=== PATIENT | male | born 1980 | race Caucasian/White ===

== ENCOUNTER → 2020-02-22 08:56 | Outpatient (CLI) | payer OTHER, SELFPAY ==
[2019-02-22 16:29] VITALS: BMI 23.7
[2020-02-22 12:02] LABS: Absolute Lymphocyte Count 1.41 X10^3/uL (0.83-4.51); Absolute Neutrophil Count 2.5 X10^3/uL (2.0-7.7); Basophil# 0.02 X10^3/uL; Basophil% 0.5 % (0-1); Eosinophil# 0.15 X10^3/uL; Eosinophils% 3.4 % (0-5); Hemoglobin 14.5 g/dL (13.0-16.5); Lymphocyte # 1.41 X10^3/ul (4.0); Lymphocyte % 32.1 % (19-41); Mean Corp Hgb Conc 32.2 g/dL (32-36); Mean Corpuscular Hgb 29.7 pg (27.0-32.0); Mean Platelet Vol. 11.1 fl (6.2-12.0); Monocyte# 0.34 X10^3/uL; Monocyte% 7.7 % (0-10); NRBC Flagged by Analyzer 0 % (0-5); Neutrophil # 2.46 X10^3/uL (2.7-7.7); Neutrophil % 56.1 % (47-70); Platelet Count 240 K/mm3 (150-450); RBC Distribution Width CV 12.3 % (11.6-14.6); RBC Distribution Width SD 41.5 fl (35.1-43.9); Red Blood Count 4.89 M/mm3 (4.6-6.2); White Blood Count 4.4 K/mm3 (4.4-11.0)
[2020-02-22 12:21] LABS: ALB/GLOB Ratio 1.4 RATIO (0.9-2.4); AST(SGOT) 14 U/L (15-37); Alanine Aminotransfer ALT/SGPT 30 U/L (16-61); Alkaline Phosphatase 53 U/L (45-117); Anion Gap 3 (5-15); BUN 15 mg/dL (7-18); BUN/Creat Ratio 15.3 RATIO (10-20); Calcium,Total 8.5 mg/dL (8.5-10.1); Chloride 105 mmol/L (98-107); Cholesterol 252 mg/dL (200); Creatinine, Serum 0.98 mg/dL (0.70-1.30); EST Glomerular Filtration Rate 91 mL/min (>60); Est Glom Filt Rate - Afr Amer 110 mL/min (>60); Globulin 2.9 g/dL (2.2-4.2); Glucose 88 mg/dL (74-106); High Density Lipoprotein 73 mg/dL; Protein, Total 6.9 g/dL (6.4-8.2); Sodium Level 138 mmol/L (136-145); Triglycerides 31 mg/dL; Very Low Density Lipoprotein 6 mg/dL (5-40)
== END ==
PROVIDERS: Family Provider Family Medicine; PCP Family Medicine; Visit Provider Family Medicine
DX: Z00.00 Encounter for general adult medical examination without abnormal findings (principal); Z51.81 Encounter for therapeutic drug level monitoring
CPT/HCPCS: 36415; 80053; 80061; 85025

== ENCOUNTER → 2022-12-14 | Outpatient (CLI) | payer BC, SELFPAY ==
[2022-12-14 13:02] LABS: ALB/GLOB Ratio 1.3 RATIO (0.9-2.4); AST(SGOT) 17 U/L (15-37); Alanine Aminotransfer ALT/SGPT 30 U/L (16-61); Albumin, Serum 3.7 g/dL (3.2-5.0); Alkaline Phosphatase 50 U/L (45-117); Anion Gap 5 (5-15); BUN 22 mg/dL (7-18); BUN/Creat Ratio 23.7 RATIO (10-20); Calcium,Total 8.3 mg/dL (8.5-10.1); Chloride 110 mmol/L (98-107); Cholesterol 235 mg/dL (200); Creatinine, Serum 0.93 mg/dL (0.70-1.30); EST Glomerular Filtration Rate 96 mL/min (>60); Est Glom Filt Rate - Afr Amer 116 mL/min (>60); Globulin 2.9 g/dL (2.2-4.2); Glucose 95 mg/dL (74-106); High Density Lipoprotein 70 mg/dL; Potassium 4.3 mmol/L (3.5-5.1); Protein, Total 6.6 g/dL (6.4-8.2); Sodium Level 139 mmol/L (136-145); Thyroid Stim Hormone (TSH) 1.51 uIU/mL (0.358-3.74); Triglycerides 31 mg/dL; Very Low Density Lipoprotein 6 mg/dL (5-40)
[2022-12-16 02:07] LABS: Zinc, WHOLE BLOOD 691 ug/dL (440-860)
== END | disposition home or self-care (01) ==
LOC: BFHLAB 08:36
PROVIDERS: PCP Family Medicine; Visit Provider Family Medicine
DX: Z00.00 Encounter for general adult medical examination without abnormal findings (principal); L60.4 Beau's lines
CPT/HCPCS: 36415; 80053; 80061; 84443; 84630

== ENCOUNTER 2023-02-27 08:50 | Emergency (ER) | payer BC, SELFPAY ==
[2023-02-27 08:51] VITALS: BP 122/89; PULSE 89; RESP 16; TEMP 36.2; O2SAT 100; BMI 24.1
--- NOTE | 2023-02-27 09:03 | EKG12_ITS ---
Test Reason : Blood Pressure : / mmHG Vent. Rate : 088 BPM Atrial Rate : 000 BPM P-R Int : 000 ms QRS Dur : 102 ms QT Int : 344 ms P-R-T Axes : 000 072 054 degrees QTc Int : 416 ms Atrial fibrillation Incomplete right bundle branch block Abnormal ECG Confirmed by NAYELI AREROLA, JOSE ([id number]), newspaper photo editor RAYMUNDO COSBY ([id number]) on 03/02/2023 10:47:58 AM Referred By: MITCH Confirmed By:JOSE TYLER MD
--- NOTE | 2023-02-27 09:21 | RAD_ITS ---
HISTORY: chest pain. TECHNIQUE: XR Chest 1 View. COMPARISON: 03/16/2015. FINDINGS: CARDIOMEDIASTINAL BORDERS: Cardiac silhouette within normal limits in size. Mediastinal contour unremarkable. LUNGS: Radiographically clear. PLEURA: No pleural effusion or pneumothorax seen. OSSEOUS STRUCTURES: Unremarkable. RAD/Chest 1 View (Portable) IMPRESSION: No acute cardiopulmonary process identified. Electronically Signed: Tami Aguero MD at 9:41 EDT ,
[2023-02-27 09:26] LABS: Absolute Lymphocyte Count 1.38 X10^3/uL (0.83-4.51); Absolute Neutrophil Count 3.8 X10^3/uL (2.0-7.7); Basophil# 0.04 X10^3/uL; Basophil% 0.6 % (0-1); Eosinophil# 0.59 X10^3/uL; Eosinophils% 9.3 % (0-5); Hematocrit 46.6 % (40-54); Hemoglobin 15.3 g/dL (13.0-16.5); Lymphocyte # 1.38 X10^3/ul (0.83-4.51); Lymphocyte % 21.8 % (19-41); Mean Corp Hgb Conc 32.8 g/dL (32-36); Mean Corpuscular Hgb 29.1 pg (27.0-32.0); Mean Corpuscular Volume 88.8 fL (80-94); Mean Platelet Vol. 10.5 fl (6.2-12.0); Monocyte% 7.9 % (0-10); NRBC Flagged by Analyzer 0 % (0-5); Neutrophil % 60.2 % (47-70); Platelet Count 234 K/mm3 (150-450); RBC Distribution Width CV 12.5 % (11.6-14.6); RBC Distribution Width SD 40.7 fl (35.1-43.9); Red Blood Count 5.25 M/mm3 (4.6-6.2); White Blood Count 6.3 K/mm3 (4.4-11.0)
--- NOTE | 2023-02-27 09:37 | EDS_ITS ---
HPI History of Present Illness Chief Complaint: Chest Other Narrative Narrative: 42-year-old male presenting with A-fib. He states that he has paroxysmal A-fib. He is not anticoagulated. Patient reports that he had a cold last week and while coughing and sneezing he was turned an abnormal angle and felt a pop in the left ribs. He had pain in this area since. He is recovered from his cold but still has A-fib. His heart rate has not been fast however. He is not having chest pressure or tightness. Patient does see the heart group and used to see Dr. Hagen. 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 He is on diltiazem for rate control. [facility] Medical History Essential hypertension Gastroenteritis GERD (gastroesophageal reflux disease) History of back problems Mixed hyperlipidemia Paroxysmal atrial fibrillation Rapid atrial fibrillation Wide-complex tachycardia Home Medications aspirin 81 mg chewable tablet 81 mg PO DAILY@0800 03/30/14 [History Last Taken 03/14/15] benazepril 20 mg tablet 20 mg PO DAILY 03/30/14 [History Last Taken 03/14/15] diltiazem HCl 240 mg capsule,extended release 24 hr 240 mg PO DAILY 03/30/14 [History Last Taken 03/15/15] apixaban 5 mg (74 tabs) tablets in a dose pack (Eliquis DVT-PE Treat 30D Start) 5 mg PO BID #74 tabs 02/27/23 [Rx Last Taken Unknown] Allergy/AdvReac Type Severity Reaction Status Date / Time No Known Allergies Allergy Verified 03/03/22 14:32 Family History Father Heart disease Cancer Prostate Hypertension Surgical History No history of previous surgery Social History Smoking Status: Never smoker alcohol intake: current details: occasional substance use type: does not use caffeine: Yes Type: coffee Number of servings: 3 ROS ROS ED Constitutional Constitutional ED: Denies chills, fever(s) or sweats Eyes Eyes: Denies blurry vision or change in vision ENT ENT ED: Denies ear pain or sore throat Cardiovascular Cardiovascular: Reports racing heartbeat; Denies palpitations Respiratory/Chest Respiratory/Chest: Denies cough, dyspnea or sputum Gastrointestinal Gastrointestinal: Denies abdominal pain, constipation, diarrhea, nausea or vomiting Genitourinary Genitourinary ED: Denies dysuria, hematuria or urinary frequency Musculoskeletal Musculoskeletal: Denies arthralgias, myalgias or neck pain Integumentary Denies abscess, Abrasions or rash Neurologic Neurologic: Denies headache(s), paresthesias or weakness Psychiatric Psychiatric: Denies anxiety, depression, suicidal ideation or suicidal thoughts Endocrine Endocrinology: Denies polydipsia or polyuria EXAM Physical Exam Const Vital Signs: 02/27/23 08:51 02/27/23 09:19 02/27/23 10:55 Temperature 97.1 F L Temperature Source Temporal Pulse Rate 89 81 Respiratory Rate 16 16 Blood Pressure 122/89 H 117/81 H Blood Pressure Mean 100 Pulse Ox 100 99 Oxygen Delivery Method Room Air Room Air Positive well nourished HEENT Reports moist mucous membranes normocephalic Eyes PERRL and EOMs intact bilaterally Resp normal respiratory effort and clear to auscultation bilaterally Auscultation: Negative for rales, rhonchi or wheezes Cardio regular rate and regular rhythm GI normal to inspection, nondistended, normoactive bowel sounds Extremity normal to inspection Neuro oriented x3 and CN's II-XII intact bilaterally Sensorium / Orientation: awake and alert Skin no rashes or lesions noted MDM MDM MDM Narrative Medical decision making narrative: Patient presenting with left rib pain. He notes that he is in A-fib but he is not having rapid heart rate. He is on Cardizem. He is not on a blood thinner. I will assess a CBC, BMP, troponin to ensure that his hemoglobin, electrolytes, renal function and heart enzymes are within normal limits. Chest x-ray to rule out pneumonia. Patient CBC, BMP unremarkable. High-sensitivity troponin is 4. EKG shows A-fib with controlled ventricular response at 88 bpm without sign of ischemic change. Chest x-ray on my interpretation shows no acute process. Radiologist interprets and agrees. Patient expressed concern that he does go in and out of A-fib but he does usually last this long. He wants to have this addressed at some point. I recommended that he follow-up with cardiology, and I spoke with Dr. Hein about this and he recommended putting the patient on Eliquis for follow-up DC and cardioversion at some point. He is not tachycardic and I did recommend he continue his diltiazem. He was started on Eliquis with first dose in the ED. He was given a starter pack. I discussed at length the risk and benefits of starting on Eliquis. He was counseled not to use NSAIDs. Patient knowledges understanding of all directions. Impression: 1. A-fib Lab Data Attestation: I reviewed the patient's lab results. Labs: Laboratory Results - last 24 hr 02/27/23 09:15 WBC 6.3 RBC 5.25 Hgb 15.3 Hct 46.6 MCV 88.8 MCH 29.1 MCHC 32.8 RDW Std Deviation 40.7 RDW Coeff of Vance 12.5 Plt Count 234 MPV 10.5 Immature Gran % (Auto) 0.200 Neut % (Auto) 60.2 Lymph % (Auto) 21.8 Hartley % (Auto) 7.9 Eos % (Auto) 9.3 H Baso % (Auto) 0.6 Absolute Neuts (auto) 3.8 Absolute Lymphs (auto) 1.38 Nucleated RBC % 0 Sodium 139 Potassium 4.1 Chloride 111 H Carbon Dioxide 24.0 Anion Gap 4 L BUN 13 Creatinine 0.83 Estim Creat Clear Calc 137.55 Est GFR (MDRD) Af Amer 132 Est GFR (MDRD) Non-Af 109 BUN/Creatinine Ratio 15.7 Glucose 109 H Calcium 8.5 Troponin I High Sens 4 Radiography Diagnostic Testing: Clinical Impression(s) from Imaging Studies Chest X-Ray 02/27/23 09:21 IMPRESSION: No acute cardiopulmonary process identified. Electronically Signed: Tami Aguero MD at 9:41 EDT , Discharge Plan Triage Chief Complaint: Chest Other ED Provider: Jovany Anguiano Dx/Rx/DC Orders Clinical Impression: Paroxysmal atrial fibrillation Instructions: ED AFIB, ED Bruise, Rib, Blood Thinner Pills: Your Guide to Using them Safely Prescriptions: New Eliquis DVT-PE Treat 30D Start 5 mg (74 tabs) tablets,dose pack 5 mg PO BID Qty: 74 0RF Rx Instructions: 10 Milligrams p.o. twice daily x1 week then 5 mg p.o. twice daily No Action diltiazem HCl 240 MG capsule 240 mg PO DAILY Patient Comments: heart rhythm aspirin 81 MG tablet,chewable 81 mg PO DAILY@0800 Patient Comments: blood thinner benazepril 20 MG tablet 20 mg PO DAILY Patient Comments: blood pressure Primary Care Provider: Mejia Mark Referrals: Mejia Mark DO [Primary Care Provider] - Disposition Disposition: Home, Self Care Discharge Date/Time: 02/27/23 10:56
[2023-02-27 09:42] LABS: Anion Gap 4 (5-15); BUN 13 mg/dL (7-18); BUN/Creat Ratio 15.7 RATIO (10-20); Calcium,Total 8.5 mg/dL (8.5-10.1); Chloride 111 mmol/L (98-107); Creatinine, Serum 0.83 mg/dL (0.70-1.30); EST Glomerular Filtration Rate 109 mL/min (>60); Est Glom Filt Rate - Afr Amer 132 mL/min (>60); Estimated Creatinine Clearance 137.55 ml/min; Glucose 109 mg/dL (74-106); Potassium 4.1 mmol/L (3.5-5.1); Sodium Level 139 mmol/L (136-145); Troponin-I HS 4 pg/mL (3.0-78.0)
[2023-02-27] MEDS: APIXABAN 5 MG TABLET 10 MG PO (10:06)
[2023-02-27 10:55] VITALS: BP 117/81; PULSE 81; RESP 16; O2SAT 99
== END 2023-02-27 10:56 | disposition home or self-care (01) ==
PROVIDERS: Emergency Provider Student in an Organized Health Care Education/Training Program; PCP Family Medicine; Visit Provider Student in an Organized Health Care Education/Training Program
DX: I48.0 Paroxysmal atrial fibrillation (principal); I10 Essential (primary) hypertension; E78.2 Mixed hyperlipidemia; R07.81 Pleurodynia; Z79.82 Long term (current) use of aspirin; K21.9 Gastro-esophageal reflux disease without esophagitis
CPT/HCPCS: 71045; 80048; 84484; 85025; 93005; 99285; A4216

== ENCOUNTER → 2023-09-30 | Outpatient (CLI) | payer BC, SELFPAY ==
[2023-09-30 16:13] LABS: PSA,Total - Annual Screen 1.47 ng/mL (0.00-4.00)
== END | disposition home or self-care (01) ==
LOC: BFHLAB 13:57
PROVIDERS: PCP Family Medicine; Visit Provider Family Medicine
DX: Z12.5 Encounter for screening for malignant neoplasm of prostate (principal); Z80.42 Family history of malignant neoplasm of prostate
CPT/HCPCS: 36415; 84153; G0103

== ENCOUNTER → 2023-11-28 | Outpatient (CLI) | payer BC, SELFPAY ==
--- NOTE | 2023-11-28 14:55 | ECHOD_ITS ---
Reason For Study: AFib Procedure This was a 2D Doppler, Color Flow transthoracic echocardiogram. Exam performed in department. Left Ventricle Normal left ventricle. Left ventricular systolic function is normal. The estimated ejection fraction is 55 %. No regional wall motion abnormalities noted. Right Ventricle Normal RV size. Normal systolic function. Atria Normal left atrium. Normal right atrium. Mitral Valve Mild mitral valve prolapse. Mild (1+) mitral valve insufficiency. Tricuspid Valve Normal tricuspid valve. Mild tricuspid valve insufficiency. Aortic Valve Trisinus/trileaflet aortic valve. Pulmonic Valve Normal pulmonic valve. Great Vessels Normal aortic root. The pulmonary artery is normal size. Inferior vena cava collapse with respiration. Pericardium/Pleural No pericardial effusion. MMode/2D Measurements & Calculations LVIDd: 4.9 cm IVSd: 1.0 cm Ao root diam: 3.4 cm LVIDs: 3.2 cm LVPWd: 1.0 cm LA dimension: 3.7 cm RVDd: 3.9 cm FS: 34.2 % LAV(MOD-bp): 50.7 ml LA A4 area: 18.1 cm2 RA A4 area: 16.3 cm2 LAV(MOD-bp) Indexed: 23.5 ml/m2 LAV(MOD-sp2): 50.7 ml LAV(MOD-sp4): 48.0 ml TAPSE: 1.8 cm Time Measurements MV dec time: 0.16 sec Doppler Measurements & Calculations MV E max senthil: 54.9 cm/sec Lat Peak E' Senthil: 10.2 cm/sec Med Peak E' Senthil: 12.3 cm/sec MV A max senthil: 49.3 cm/sec E/E' lat: 5.4 E/E' med: 4.5 MV E/A: 1.1 MV V2 max: 64.8 cm/sec MV P1/2t max senthil: 65.6 cm/sec Ao V2 max: 115.5 cm/sec MV max P.7 mmHg MV P1/2t: 52.5 msec Ao max P.3 mmHg MV V2 mean: 35.4 cm/sec Ao V2 mean: 82.0 cm/sec MV mean P.61 mmHg MV dec slope: 365.7 cm/sec2 Ao mean P.1 mmHg MV V2 VTI: 18.4 cm MVA(P1/2t): 4.2 cm2 Ao V2 VTI: 26.6 cm AV (velocity ratio): 0.79 LV V1 max: 102.0 cm/sec PA V2 max: 87.3 cm/sec TR max senthil: 217.8 cm/sec LV V1 max P.2 mmHg TR max P.0 mmHg LV V1 mean P.2 mmHg LV V1 mean: 68.0 cm/sec LV V1 VTI: 20.9 cm ECHO/Echo Complete Interpretation Summary Normal left ventricle. Left ventricular systolic function is normal. The estimated ejection fraction is 55 %. Mild mitral valve prolapse. Mild (1+) mitral valve insufficiency. Ordering Physician: Kel Chapman Referring Physician: Mejia Mark Performed By: Joshua Valdez RCS
== END | disposition home or self-care (01) ==
PROVIDERS: PCP Family Medicine; Referring Provider Internal Medicine Cardiovascular Disease; Visit Provider Internal Medicine Cardiovascular Disease
DX: I48.0 Paroxysmal atrial fibrillation (principal); I10 Essential (primary) hypertension; I34.1 Nonrheumatic mitral (valve) prolapse
CPT/HCPCS: 93306